=== PATIENT | male | born 2000 | race Caucasian/White ===

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

== ENCOUNTER 2022-08-26 14:25 | Outpatient (CLI) | payer MEDICAID, SELFPAY ==
--- NOTE | 2022-08-26 | DI.RAD_ITS ---
Exam(s) XR CERVICAL SP COMP W FLEX/EXT EXAM: XR CERVICAL SP COMP W FLEX/EXT CLINICAL HISTORY: DOWNS SYNDROME, Q90.9. TECHNIQUE: 2D digital imaging was performed. COMPARISON: No exams were available for comparison FINDINGS: Eight views No evidence of fracture, listhesis, nor offset of the spinal laminar line. Moderate disc space narrowing at C5-6 noted. Other disc spaces exhibit normal height. No obvious fa cet arthropathy. No jumped facets nor facet malalignment. No listhesis with flexion extension. C6- 7 exhibits normal disc height. IMPRESSION: Moderate disc space narrowing at C5-6 level. No listhesis. DATA REPOSITORY: RADIATION DOSE DELIVERED:
== END 2022-08-26 14:45 ==
LOC: DI 14:26
PROVIDERS: PCP Internal Medicine; Visit Provider Family Medicine
DX: Q90.9 Down syndrome, unspecified (principal); M48.02 Spinal stenosis, cervical region
CPT/HCPCS: 72052

== ENCOUNTER 2023-07-05 11:03 | Emergency (ER) | payer MEDICAID, SELFPAY ==
[2023-07-05 11:08] VITALS: BP 131/73; PULSE 68; RESP 18; TEMP 37.4; O2SAT 99
--- NOTE | 2023-07-05 12:12 | ED.GENADUL_ITS ---
Discharge Plan Disposition Patient Disposition: Home Discharge Details Clinical Impression: Abscess of left thigh Primary Care Provider: Gordon Griffiths ED Provider: Chris Schneider Home Meds and New Rx's Prescriptions: New sulfamethoxazole-trimethoprim [Bactrim DS] 800-160 mg tablet 1 tab PO BID Qty: 14 0RF No Action melatonin 5 mg Tablet 5 mg PO HS PRN Discharge Instructions Instructions: Abscess (ED) Additional Instructions: Please continue to monitor symptoms and return immediately for any new or significant worsening of condition. Please take antibiotics as prescribed and for the full course of medication You may use [id number]-[id number] pain medication as needed for discomfort and continue warm compresses 3-4 times daily Please follow-up with your primary care provider if not improving Referrals: Gordon Griffiths MD [Primary Care Provider] - (If not improving) Discharge Data Discharge Date/Time-TO BE ENTERED AT DEPARTURE: 07/05/23 12:25 HPI General Mode of arrival: ambulatory . Date/Time Provider Initiated Documentation: 07/05/23 11:13 . Limitations to Documentation: no limitations . Information obtained by: patient, family and RN notes reviewed . History of Present Illness 22 year old M presents to the emergency department with the chief complaint of Left leg abscess, described as moderate, Patient started experiencing this day(s) (2) and it has been constant. No relieving factors improve symptom(s), No exacerbating factors reported . Patient notes no other symptoms.. Patient did receive the following treatments prior to arrival, other (Topical tara, warm compresses) Related Data Home Medications Medication Instructions Recorded Confirmed melatonin 5 mg tablet 5 mg PO HS PRN 12/07/18 07/05/23 sulfamethoxazole 800 1 tab PO BID #14 tabs 07/05/23 mg-trimethoprim 160 mg tablet (Bactrim DS) Previous Rx's Medication Instructions Recorded sulfamethoxazole 800 1 tab PO BID #14 tabs 07/05/23 mg-trimethoprim 160 mg tablet (Bactrim DS) Allergies Allergy/AdvReac Type Severity Reaction Status Date / Time Penicillins Allergy Mild Diarrhea Unverified 07/05/23 11:11 General Stated Complaint: RashLesion JO: 3 Review of Systems Constitutional Constitutional: Denies chills and Denies fever(s) Gastrointestinal Gastrointestinal: Denies nausea Musculoskeletal Musculoskeletal: Denies myalgias and Denies arthralgias Integumentary/Breasts Skin/Breast: Reports as per HPI, Reports furuncle, Reports erythema, Denies rash, Reports skin pain and Reports skin swelling Exam Const General: cooperative, no acute distress and not ill appearing Orientation: alert and awake HENMT Mouth: moist mucous membranes Cardio Rate: regular rate Rhythm: regular rhythm Skin General skin exam: no rashes or lesions noted Neuro General: patient alert, patient awake, moves all extremities and no focal motor deficits Extrem General: normal exam except as noted Left lower extremity: hip/thigh Details: swelling and other (Inner thigh mild abscess with superficial erythema and slight induration) Course Vital Signs Vital signs: Vital Signs Temperature 37.4 C 07/05/23 11:08 Pulse 68 07/05/23 11:08 Respiratory Rate 18 07/05/23 11:08 Blood Pressure 131/73 07/05/23 11:08 Pulse Oximetry 99 07/05/23 11:08 Temperature 37.4 C 07/05/23 11:08 Pulse 68 07/05/23 11:08 Respiratory Rate 18 07/05/23 11:08 Respiratory Effort Normal, Non-Labored 07/05/23 11:11 Blood Pressure 131/73 07/05/23 11:08 Blood Pressure Position Sitting 07/05/23 11:08 Pulse Oximetry 99 07/05/23 11:08 Oxygen Delivery Method Room Air 07/05/23 11:08 Oxygen Flow Rate 0 07/05/23 11:08 Medical Decision Making Small abscess left thigh. Denies systemic symptoms. Bedside ultrasound was utilized and no obvious fluid collection. There is some surrounding cellulitis so we will treat patient with antibiotics but do not feel that I&D is needed at this time. After discussion of diagnosis and plan of care family and patient has no further needs, questions, or concerns and states clear understanding to return to the emergency department for any worsening symptoms. This documentation was generated using [employer] dictation system, please disregard any oddities of phrase or misspellings. Quality:SDOH Health Related Social Needs: No Data to Display PFSH All Active Problems (Updated 07/05/23 @ 12:14 by Chris Schneider NP) Abscess of left thigh (Acute) Social History Smoking/Tobacco Use Status: Never Smoking risk assessment performed?: Yes Alcohol Intake: never Drug use: Never Substance use type: does not use Do you feel safe at home: Yes Do you feel safe in your relationship?: Yes
[2023-07-05] MEDS: Sulfameth/Trimeth DS TAB 1 TAB PO (12:18)
== END 2023-07-05 12:25 | disposition home or self-care (01) ==
PROVIDERS: Emergency Provider Nurse Practitioner Family; PCP Family Medicine
DX: L02.416 Cutaneous abscess of left lower limb (principal)
CPT/HCPCS: 99284; 99283

== ENCOUNTER 2023-09-10 14:52 | Outpatient (REF) | payer MEDICAID, SELFPAY ==
[2023-09-11 19:14] LABS: Tissue Transglutaminase Ab IgA <1.2 U/mL (<4.0)
== END 2023-09-10 14:53 | disposition home or self-care (01) ==
LOC: NCHCN 14:52
PROVIDERS: PCP Nurse Practitioner Family; Visit Provider Nurse Practitioner Family
DX: Z87.19 Personal history of other diseases of the digestive system (principal)
CPT/HCPCS: 83516